=== PATIENT | female | born 1990 | race Caucasian/White ===

== ENCOUNTER 2017-06-02 05:43 | Emergency (ER) | payer OTHER ==
[~2017-06-02] VITALS: Ht 162.6 cm; Wt 59.6 kg
[2017-06-02 05:51] VITALS: Ht 162.6 cm; Wt 59.6 kg
[2017-06-02 07:23] VITALS: BP 110/81
== END 2017-06-02 07:23 | disposition home or self-care (01) ==
LOC: ED 05:43
DX: J03.90 Acute tonsillitis, unspecified (principal)
CPT/HCPCS: J0696; J1100